=== PATIENT | male | born 1970 | race Caucasian/White ===

== ENCOUNTER → 2020-11-06 10:15 | Outpatient (BNVA) | payer OTHER, SELFPAY | PROVIDERS: PCP Internal Medicine; Visit Provider Internal Medicine Cardiovascular Disease | DX: I49.8 Other specified cardiac arrhythmias (principal) | CPT/HCPCS: 93005; 99212 ==

== ENCOUNTER 2020-11-26 10:09 | Outpatient (REF) | payer OTHER, SELFPAY ==
[2020-11-26 10:52] LABS: Basophils Percent Auto 0.7 % (0-2); Eosinophils Absolute Auto 0.1 X10*3/uL (0.0-0.4); Eosinophils Percent Auto 1.9 % (0-4); Hematocrit 43.4 % (42-52); Hemoglobin 14.7 g/dl (14.0-18.0); Imm Gran Abs Auto 0.04 X10*3/uL (0.00-0.03); Imm Gran Pct Auto 0.7 % (0.0-0.4); Lymphocytes Absolute Auto 1.8 X10*3/uL (1.2-4.9); MANUAL DIFF FLAG NO; Mean Corpuscular HGB Conc 33.9 g/dl (31.0-36.0); Mean Corpuscular Hemoglobin 30.8 pg (27.0-33.0); Mean Corpuscular Volume 90.8 fL (80-98); Mean Platelet Volume 10.4 fL (9.4-12.4); Monocytes Absolute Auto 0.5 X10*3/uL (0.1-1.2); Monocytes Percent Auto 8.8 % (2-11); Neutrophils Absolute Auto 3.3 X10*3/uL (2.0-8.3); Neutrophils Percent Auto 56.9 % (45-73); Platelet Count 204 X10*3/uL (160-400); Red Blood Count 4.78 X10*6/uL (4.60-5.80); Red Cell Distribution Width 12.6 % (11.0-16.0); White Blood Count 5.8 X10*3/uL (4.8-10.8)
[2020-11-26 11:15] LABS: Alanine Aminotransferase 28 U/L (0-40); Albumin Level 4.4 g/dL (3.5-5.0); Alkaline Phosphatase 50 U/L (39-117); Anion Gap 11 (12-20); Aspartate Amino Transferase 22 U/L (5-37); Bilirubin Total 0.9 mg/dL (0.0-1.0); Blood Urea Nitrogen 12 mg/dL (9-16); Calcium 9.4 mg/dL (8.4-10.2); Carbon Dioxide 31 mmol/L (22-29); Chloride 102 mmol/L (96-108); Cholesterol 154 mg/dL; Estimated Glomerular Filt Rate > 60; Glucose Random 99 mg/dL (60-115); HDL Cholesterol 42 mg/dL; LDL Cholesterol Calculated 89 mg/dl; Potassium 4.1 mmol/l (3.3-5.1); Sodium 140 mmol/L (135-145); Triglycerides 119 mg/dL
== END 2020-11-26 10:10 | disposition home or self-care (01) ==
LOC: HO.LAB 10:09
PROVIDERS: PCP Internal Medicine; Visit Provider Internal Medicine
DX: I10 Essential (primary) hypertension (principal); G80.9 Cerebral palsy, unspecified; G81.11 Spastic hemiplegia affecting right dominant side; F70 Mild intellectual disabilities; E66.9 Obesity, unspecified
CPT/HCPCS: 36415; 80053; 80061; 85025

== ENCOUNTER 2021-12-10 09:08 | Outpatient (REF) | payer OTHER, SELFPAY ==
[2021-12-10 09:22] LABS: MANUAL DIFF FLAG NO
[2021-12-10 09:43] LABS: Basophils Percent Auto 0.7 % (0-2); Eosinophils Absolute Auto 0.1 X10*3/uL (0.0-0.4); Eosinophils Percent Auto 2.4 % (0-4); Hemoglobin 14.6 g/dl (14.0-18.0); Imm Gran Abs Auto 0.02 X10*3/uL (0.00-0.03); Imm Gran Pct Auto 0.4 % (0.0-0.4); Lymphocytes Absolute Auto 1.6 X10*3/uL (1.2-4.9); Lymphocytes Percent Auto 28.8 % (20-40); Mean Corpuscular Hemoglobin 30.4 pg (27.0-33.0); Mean Corpuscular Volume 89.6 fL (80.0-98.0); Mean Platelet Volume 10.4 fL (9.4-12.4); Monocytes Absolute Auto 0.4 X10*3/uL (0.1-1.2); Monocytes Percent Auto 7.7 % (2-11); Neutrophils Absolute Auto 3.3 x10*3/uL (2.0-8.3); Platelet Count 216 X10*3/uL (160-400); Red Cell Distribution Width 12.8 % (11.0-16.0); White Blood Count 5.5 X10*3/uL (4.8-10.8)
[2021-12-10 10:09] LABS: Alanine Aminotransferase 27 U/L (0-40); Albumin Level 4.4 g/dL (3.5-5.0); Alkaline Phosphatase 53 U/L (39-117); Anion Gap 15 (12-20); Aspartate Amino Transferase 24 U/L (5-37); Bilirubin Total 0.8 mg/dL (0.0-1.0); Blood Urea Nitrogen 8 mg/dL (9-16); Calcium 9.7 mg/dL (8.4-10.2); Carbon Dioxide 26 mmol/L (22-29); Chloride 107 mmol/L (96-108); Estimated Glomerular Filt Rate > 60; Glucose Random 104 mg/dL (60-115); Potassium 4.1 mmol/L (3.3-5.1); Sodium 144 mmol/L (135-145); Total Protein 7.1 g/dL (6.5-8.0)
[2021-12-10 10:31] LABS: Thyroid Stimulating Hormone 1.94 uIU/mL (0.32-4.0)
== END 2021-12-10 09:09 | disposition home or self-care (01) ==
LOC: HO.LAB 09:08
PROVIDERS: PCP Internal Medicine; Visit Provider Internal Medicine
DX: Z00.01 Encounter for general adult medical examination with abnormal findings (principal); G81.11 Spastic hemiplegia affecting right dominant side; I49.8 Other specified cardiac arrhythmias
CPT/HCPCS: 36415; 80053; 84443; 85025

== ENCOUNTER → 2022-04-05 10:38 | Outpatient (BNVA) | payer OTHER, SELFPAY | PROVIDERS: PCP Internal Medicine; Visit Provider Surgery Vascular Surgery | DX: I83.11 Varicose veins of right lower extremity with inflammation (principal); I89.0 Lymphedema, not elsewhere classified | CPT/HCPCS: 99212 ==

== ENCOUNTER 2022-06-01 10:25 | Outpatient (REF) | payer OTHER, SELFPAY ==
--- NOTE | ~2022-06-01 | US_ITS ---
EXAMINATION: US LOWER EXTREMITY VENOUS (REFLUX EXAM), BILATERAL CLINICAL INDICATION: Chronic venous insufficiency COMPARISON: Ultrasound from 12/10/2014 TECHNIQUE: Color flow triplex imaging and compression Doppler was performed to evaluate both the deep and the superficial systems bilaterally. To evaluate the superficial system, the examination was performed in the upright position. Color-flow Doppler ultrasound and compression ultrasound were utilized. In addition, maneuvers were utilized to demonstrate reflux. FINDINGS: 1. DEEP VENOUS ULTRASOUND OF THE RIGHT LOWER EXTREMITY: Common Femoral Vein: Compressible, normal respiratory variation and augmented flow. Femoral Vein: Compressible, normal color flow and augmentation. Popliteal Vein: Compressible, normal augmentation. Deep Reflux: There is no evidence of reflux in the deep system in either the common femoral vein or the popliteal vein. There is no evidence of a Beltran's cyst. 2. SUPERFICIAL ULTRASOUND WITH DOPPLER OF RIGHT LOWER EXTREMITY: GREAT SAPHENOUS VEIN: Saphenofemoral Junction: 8 mm; Reflux: 0 ms Proximal Thigh: 7 mm; Reflux: 0 ms Mid Thigh: 4 mm; Reflux: 0 ms Above Knee: 5 mm; Reflux: 0 ms At Knee: 4 mm; Reflux: 0 ms Below Knee: 4 mm; Reflux: 0 ms Mid Calf: 4 mm; Reflux: 0 ms Ankle: 5 mm; Reflux: 0 ms DUPLICATED MEDIAL GREAT SAPHENOUS VEIN: Diameter: None Imaged Reflux: NA DUPLICATED LATERAL GREAT SAPHENOUS VEIN: Diameter: None Imaged Reflux: NA SMALL SAPHENOUS VEIN: Proximal: 2 mm; Reflux: 0 ms Distal: 2 mm; Reflux: 0 ms VEIN OF GIACOMINI: None Imaged. PERFORATORS: Location: None Imaged Size: NA Reflux: NA VARICOSITIES: Location: None Imaged Size: NA Reflux: NA 3. DEEP VENOUS ULTRASOUND OF THE LEFT LOWER EXTREMITY: Common Femoral Vein: Compressible, normal respiratory variation and augmented flow. Femoral Vein: Compressible, normal color flow and augmentation. Popliteal Vein: Compressible, normal augmentation. Deep Reflux: There is no evidence of reflux in the deep system in either the common femoral vein or the popliteal vein. There is no evidence of a Beltran's cyst. 4. SUPERFICIAL ULTRASOUND WITH DOPPLER OF LEFT LOWER EXTREMITY: GREAT SAPHENOUS VEIN: Saphenofemoral Junction: 7 mm; Reflux: 0 ms Proximal Thigh: 5 mm; Reflux: 0 ms Mid Thigh: 3 mm; Reflux: 0 ms Above Knee: 3 mm; Reflux: 0 ms At Knee: 5 mm; Reflux: 0 ms Below Knee: 3 mm; Reflux: 0 ms Mid Calf: 2 mm; Reflux: 0 ms Ankle: 4 mm; Reflux: 0 ms DUPLICATED MEDIAL GREAT SAPHENOUS VEIN: Diameter: None Imaged Reflux: NA DUPLICATED LATERAL GREAT SAPHENOUS VEIN: Diameter: 3 mm Reflux: None SMALL SAPHENOUS VEIN: Proximal: 4 mm; Reflux: 0 ms Distal: 3 mm; Reflux: 0 ms VEIN OF GIACOMINI: None Imaged. PERFORATORS: Location: None Imaged Size: NA Reflux: NA VARICOSITIES: Location: None Imaged Size: NA Reflux: NA US/US venous duplex LE BI IMPRESSION: Right: No evidence of deep venous thrombosis. No significant superficial venous reflux Left: No evidence of deep venous thrombosis. No significant superficial venous reflux
== END 2022-06-01 10:26 | disposition home or self-care (01) ==
LOC: HO.US 10:25
PROVIDERS: Visit Provider Surgery Vascular Surgery
DX: I83.11 Varicose veins of right lower extremity with inflammation (principal)
CPT/HCPCS: 93970

== ENCOUNTER → 2022-06-07 09:54 | Outpatient (BNVA) | payer OTHER, SELFPAY | PROVIDERS: PCP Internal Medicine; Visit Provider Surgery Vascular Surgery | DX: I83.11 Varicose veins of right lower extremity with inflammation (principal); I89.0 Lymphedema, not elsewhere classified | CPT/HCPCS: 99212 ==

== ENCOUNTER 2022-06-30 08:55 | Outpatient (REF) | payer OTHER, SELFPAY ==
[2022-06-30 10:07] LABS: Alanine Aminotransferase 23 U/L (0-40); Albumin Level 4.3 g/dL (3.5-5.0); Alkaline Phosphatase 52 U/L (39-117); Anion Gap 15 (12-20); Aspartate Amino Transferase 23 U/L (5-37); Bilirubin Total 0.6 mg/dL (0.0-1.0); Blood Urea Nitrogen 8 mg/dL (9-16); Calcium 9.1 mg/dL (8.4-10.2); Carbon Dioxide 26 mmol/L (22-29); Chloride 104 mmol/L (96-108); Cholesterol 171 mg/dL; Estimated Glomerular Filt Rate > 60; Glucose Fasting 113 mg/dL (60-99); HDL Cholesterol 43 mg/dL; LDL Cholesterol Calculated 104 mg/dl; Potassium 4.3 mmol/L (3.3-5.1); Sodium 141 mmol/L (135-145); Triglycerides 124 mg/dL
== END 2022-06-30 08:56 | disposition home or self-care (01) ==
LOC: HO.LAB 08:55
PROVIDERS: PCP Internal Medicine; Visit Provider Internal Medicine
DX: I49.8 Other specified cardiac arrhythmias (principal)
CPT/HCPCS: 36415; 80053; 80061

== ENCOUNTER 2023-03-10 09:36 | Outpatient (REF) | payer OTHER, SELFPAY ==
[2023-03-10 11:44] LABS: Alanine Aminotransferase 28 U/L (0-40); Albumin Level 4.5 g/dL (3.5-5.0); Alkaline Phosphatase 53 U/L (39-117); Anion Gap 12 (12-20); Aspartate Amino Transferase 21 U/L (5-37); Blood Urea Nitrogen 9 mg/dL (9-16); Calcium 9.4 mg/dL (8.4-10.2); Carbon Dioxide 31 mmol/L (22-29); Chloride 103 mmol/L (96-108); Cholesterol 172 mg/dL; Estimated Glomerular Filt Rate > 60; Glucose Fasting 98 mg/dL (60-99); HDL Cholesterol 40 mg/dL; LDL Cholesterol Calculated 109 mg/dl; Potassium 4.2 mmol/L (3.3-5.1); Sodium 142 mmol/L (135-145); Total Protein 6.9 g/dL (6.5-8.0); Triglycerides 116 mg/dL
[2023-03-10 12:01] LABS: Vitamin D 25-OH Total 14.1 ng/mL (>30)
== END 2023-03-10 09:37 | disposition home or self-care (01) ==
LOC: HO.LAB 09:36
PROVIDERS: PCP Internal Medicine; Visit Provider Internal Medicine
DX: I73.9 Peripheral vascular disease, unspecified (principal); E55.9 Vitamin D deficiency, unspecified
CPT/HCPCS: 36415; 80053; 80061; 82306

== ENCOUNTER 2023-07-13 08:36 | Outpatient (REF) | payer OTHER, SELFPAY ==
[2023-07-13 10:44] LABS: Alanine Aminotransferase 24 U/L (0-40); Albumin Level 4.2 g/dL (3.5-5.0); Alkaline Phosphatase 49 U/L (39-117); Anion Gap 12 (12-20); Aspartate Amino Transferase 23 U/L (5-37); Bilirubin Total 0.7 mg/dL (0.0-1.0); Blood Urea Nitrogen 8 mg/dL (9-16); Calcium 9.6 mg/dL (8.4-10.2); Carbon Dioxide 29 mmol/L (22-29); Chloride 105 mmol/L (96-108); Cholesterol 164 mg/dL (<200); Estimated Glomerular Filt Rate > 60; Glucose Fasting 97 mg/dL (60-99); HDL Cholesterol 42 mg/dL (>40); LDL Cholesterol Calculated 98 mg/dL (<100); Potassium 3.8 mmol/L (3.3-5.1); Sodium 142 mmol/L (135-145); Total Protein 7.1 g/dL (6.5-8.0); Triglycerides 120 mg/dL (<150)
[2023-07-13 11:04] LABS: Vitamin D 25-OH Total 18.6 ng/mL (>30)
== END 2023-07-13 08:37 | disposition home or self-care (01) ==
LOC: HO.LAB 08:36
PROVIDERS: PCP Internal Medicine; Visit Provider Internal Medicine
DX: I49.8 Other specified cardiac arrhythmias (principal); E78.5 Hyperlipidemia, unspecified; E55.9 Vitamin D deficiency, unspecified
CPT/HCPCS: 36415; 80053; 80061; 82306

== ENCOUNTER 2023-07-18 08:46 | Outpatient (AMB) | payer OTHER, SELFPAY ==
[2023-07-18 09:21] VITALS: BP 136/80
--- NOTE | 2023-07-18 09:21 | A.OFFPC_ITS ---
Vital Signs 07/18/23 09:21 BMI Reason not done Patient refused/unable BP 136/80 Blood Pressure Location Lt brachial Position Sitting Intake Visit Reasons: daytime somnolence Intake Note: Patient here for a daytime somnolence Insole Tape Stitcher [employer] Required: No Accompanied by: Niece Allergies No Known Allergies [No Known Allergies*] Allergy (Verified 07/18/23 09:35) Medication List - Last Reconciled 07/18/23 by Betzy Matthews MD cholecalciferol (vitamin D3) 25 mcg PO DAILY 90 days [compression stockings As directed] metoprolol tartrate 50 mg PO BID 90 days underpads (Certainty Underpads) As directed [wheelchair heavy duty with leg rest As directed] Tobacco use date assessed: 03/16/23 Dental Screening Dental Screen Date: 07/18/23 Did you have a dental visit in the last 12 months?: No Did you have a dental problem in the last 6 months where you did not have access to dental care?: No Was dental information given to patient?: Patient has dentist HPI HPI Comments History of Present Illness Details This is a 52-year-old male with Brugada syndrome, wheelchair-bound, urinary incontinence and low vitamin-D that comes today accompanied by REPLANTING MACHINE OPERATOR which is his niece for follow-up on recent labs. Labs were within normal limits. Vitamin-D normal on supplements. He is wheelchair bound and has right hemiplegia with minimal range of motion in both upper and lower limbs. Needs assistance in basic activities of daily such as bathing, toileting, transfer fr om bed to wheelchair since . Urinary incontinence has been present since and use diapers. Brugada syndrome is follow by cardiology and has been well control. No chest pain or shortness of breath. [facility] Medical History (Updated 07/18/23 @ 09:42 by Betzy Matthews MD) Arterial insufficiency of lower extremity Brugada syndrome History of bacterial meningitis in childhood Leg edema Wheelchair bound Surgical History History of hip surgery Family History Father HTN (hypertension) Diabetes Hyperlipidemia Mother HTN (hypertension) Hyperlipidemia Diabetes Social History Housing: House Alcohol intake: never Patient Tobacco Use Status: Never used Tobacco e-Cigarette/Vaping Use: Never Used Second Hand Smoke Exposure: No service: No Current occupational status: disabled Cognitive needs: Yes Hearing needs: No Vision needs: No Questionnaire Thrive Questionnaire Date Thrive assessed: 03/16/23 RODNEY-7 AMB Questionnaire RODNEY-7 Date RODNEY - 7 assessed: 03/16/23 Source: Developed by Drs. Jonh López, Kiley Srinivasan, Zoltan Sepulveda and colleagues, with an educational cam from [employer]. Review of Systems Const All systems reviewed & are unremarkable except as noted in HPI and below Eyes Reports no additional complaints, Denies change in vision and Denies other visual disturbances Card Denies chest pain at rest, Denies chest pain with activity, Denies edema, Denies irregular heart rhythm, Denies claudication, Denies dyspnea, Denies dyspnea on exertion, Denies orthopnea, Denies paroxysmal nocturnal dyspnea and Denies slow heart rate Resp Denies cough, Denies dyspnea and Denies dyspnea on exertion GI Denies abdominal pain, Denies change in bowel habits, Denies excessive flatus, Denies nausea and Denies vomiting Denies urinary hesitancy, Denies urinary incontinence and Denies urinary urgency Musc Denies abnormal gait, Denies atrophy, Denies deformity and Denies limited range of motion Skin/Breast Denies bleeding lesions, Denies changing lesions and Denies rash Neuro Denies abnormal gait and Denies lack of coordination Physical exam (Primary Care) Vital Signs: Last Vital Signs BP 136/80 07/18/23 09:21 Tobacco/Smoking Status: Tobacco use Status Tobacco use date assessed 03/16/23 07/18/23 09:24 Patient Tobacco Use Status Never used Tobacco 07/18/23 09:24 e-Cigarette/Vaping Use Never Used 07/18/23 09:24 Thrive Assessment: Date of Thrive Assessment Date Thrive assessed 03/16/23 07/18/23 09:24 Const Limitations: wheelchair Eyes General: appearance normal, both eyes and all related structures Eyelids: Yes eyelids normal Conjunctivae: conjunctivae normal Neck Neck: Yes normal visual inspection and Yes supple Resp Effort & Inspection: normal respiratory effort Auscultation: clear to auscultation bilaterally Cardio Jugular venous distension: no JVD Rate: regular rate Rhythm: regular rhythm Heart sounds: S1 normal heart sound present and S2 normal heart sound present Neuro Motor exam (neuro): Abnormal motor strength present (1/5 in right upper and lower limbs, 5/5/ left upper and lower limbs) Extrem General: Yes full ROM Assessment and Plan Assessment & Plan (1) Hypovitaminosis D: Code(s): E55.9 - Vitamin D deficiency, unspecified Plan: Continue vitamin-D supplements. (2) Urinary incontinence: Code(s): R32 - Unspecified urinary incontinence Plan: Continue the use of diapers (3) Brugada syndrome: Code(s): I49.8 - Other specified cardiac arrhythmias Plan: Continue metoprolol. (4) Wheelchair bound: Code(s): Z99.3 - Dependence on wheelchair Plan: Continue the use of wheelchair Orders: Referrals Gastroenterology Referral Z12.11 - Encounter for screening for malignant neoplasm of colon Medications: Refilled [wheelchair heavy duty with leg rest] As directed 1 ea 0RF I73.9 - Peripheral vascular disease, unspecified, I89.0 - Lymphedema, not elsewhere classified, Z99.3 - Dependence on wheelchair Coding Level of Care Code Est Pt Level 4 (40673) Diagnoses Hypovitaminosis D E55.9 Urinary incontinence R32 Brugada syndrome I49.8 Wheelchair bound Z99.3 Time Spent (min) 22
== END 2023-07-18 09:50 | disposition home or self-care (01) ==
PROVIDERS: Visit Provider Internal Medicine
DX: E55.9 Vitamin D deficiency, unspecified (principal); R32 Unspecified urinary incontinence; I49.8 Other specified cardiac arrhythmias; Z99.3 Dependence on wheelchair
CPT/HCPCS: 99214

== ENCOUNTER 2024-05-22 08:27 | Outpatient (AMB) | payer OTHER, SELFPAY ==
--- NOTE | 2024-05-22 08:58 | AM.OFFVISNUR ---
Intake Visit Reasons: TB vaccine Allergies No Known Allergies [No Known Allergies*] Allergy (Verified 07/18/23 09:35) Assessment & Plan Assessment & Plan Orders: Orders Td State Immunization Today Z23 - Encounter for immunization Medications: New tetanus-diphtheria toxoids-Td 0.5 mL IM ONCE 0.5 mL 0RF Z23 - Encounter for immunization
== END 2024-05-22 09:02 | disposition home or self-care (01) ==
PROVIDERS: PCP Internal Medicine; Visit Provider Internal Medicine
DX: Z23 Encounter for immunization (principal)
CPT/HCPCS: 90471; 90714

== ENCOUNTER 2024-06-13 12:54 | Outpatient (AMB) | payer OTHER, SELFPAY ==
--- NOTE | 2024-06-13 13:00 | A.OFFPC_ITS ---
Vital Signs 06/13/24 13:06 BMI Reason not done Patient refused/unable BP 112/80 Blood Pressure Location Lt brachial Position Sitting Pulse 59 Pulse Source Pulse Oximeter Pulse Oximetry (%) 95 Oxygen Delivery Method Room Air Comment Patient on wheelchair Intake Visit Reasons: ANNUAL Intake Note: Patient here for an annual physical exam Group Contract Analyst Required: No Accompanied by: niece Allergies No Known Allergies [No Known Allergies*] Allergy (Verified 06/13/24 13:10) Medication List - Last Reconciled 06/13/24 by Betzy Matthews MD cholecalciferol (vitamin D3) 25 mcg PO DAILY 90 days [compression stockings As directed] metoprolol tartrate 50 mg PO BID 90 days underpads (Certainty Underpads) As directed [wheelchair heavy duty with leg rest LIFETIME USE] Tobacco use date assessed: 06/13/24 Dental Screening Dental Screen Date: 06/13/24 Did you have a dental visit in the last 12 months?: No Did you have a dental problem in the last 6 months where you did not have access to dental care?: No Was dental information given to patient?: Patient has dentist HPI HPI Comments History of Present Illness Details This is a 53-year-old male with right hemiplegia that comes today accompanied by drawstring knotter which is his niece for physical exam. He was born this way wheelchair-bound. Has not had a colonoscopy. Cologuard was too difficult to be done. No chest pain or shortness on breath. Will benefit from physical therapy due to hemiplegia. [facility] Medical History (Updated 06/13/24 @ 13:23 by Betzy Matthews MD) Arterial insufficiency of lower extremity Leg edema History of bacterial meningitis in childhood Wheelchair bound Brugada syndrome Surgical History History of hip surgery Family History Father HTN (hypertension) Diabetes Hyperlipidemia Mother HTN (hypertension) Hyperlipidemia Diabetes Social History Housing: House Alcohol intake: never Patient Tobacco Use Status: Never used Tobacco e-Cigarette/Vaping Use: Never Used Second Hand Smoke Exposure: No service: No Current occupational status: disabled Cognitive needs: Yes Hearing needs: No Vision needs: No Questionnaire PHQ-9 Over the last 2 weeks, how often have you been bothered by any of the following problems? 1. Little interest or pleasure in doing things: not at all 2. Feeling down, depressed, or hopeless: not at all 3. Trouble falling or staying asleep, or sleeping too much: not at all 4. Feeling tired or having little energy: not at all 5. Poor appetite or overeating: not at all 6. Feeling bad about yourself - or that you are a failure or have let yourself or your family down: not at all 7. Trouble concentrating on things, such as reading the newspaper or watching television: not at all 8. Moving or speaking so slowly that other people could have noticed. Or the opposite - being so fidgety or restless that you have been moving around a lot more than usual: not at all 9. Thoughts that you would be better off or of hurting yourself in some way: not at all Total score: 0 Depression Screening Interpretation: Negative Depression Screening Done: Yes 60569 - PHQ-9 Billing: Yes Source: Developed by Drs. Jonh López, Kiley Srinivasan, Zoltan Sepulveda and colleagues, with an educational cam from [employer]. Thrive Questionnaire Date Thrive assessed: 06/13/24 I am a: Patient What is your living situation today?: I have a steady place to live Within the past 12 months, did the food you bought not last and you didn't have the money to get more?: Never true Within the past 12 months, did you worry whether your food would run out before you got money to buy more?: Never true Do you have trouble paying for medicines?: No Do you have trouble getting transportation to medical appointments?: No Do you have trouble paying your heating and electricity bill?: No Do you have trouble taking care of your child, family member or friend?: No Do you have trouble with day-to-day activities such as bathing, preparing meals, shopping, managing finances, etc.?: No Are you currently unemployed and looking for a job?: No Are you interested in more education?: No Please select the resources that you would like help with: None Currently or been in a relationship where the following occur: No concerns reported THRIVE Score: 0 AUDIT C Alcohol Use Questionnaire (AUDIT-C) 1. How often do you have a drink containing alcohol?: Never Total Score: 0 RODNEY-7 AMB Questionnaire RODNEY-7 Date RODNEY - 7 assessed: 06/13/24 Feeling nervous, anxious, or on edge: 0 = Not at all Not being able to stop or control worryin = Not at all Worrying too much about different things: 0 = Not at all Trouble relaxin = Not at all Being so restless that it is hard to sit still: 0 = Not at all Becoming easily annoyed or irritable: 0 = Not at all Feeling afraid as if something awful might happen: 0 = Not at all Total RODNEY-7 score (0-4 normal; 5-9 mild; 10-14 moderate; 15-21 severe): 0 Source: Developed by Drs. Jonh López, Kiley Srinivasan, Zoltan Sepulveda and colleagues, with an educational cam from [employer]. Review of Systems Const All systems reviewed & are unremarkable except as noted in HPI and below Card Denies chest pain at rest, Denies chest pain with activity, Denies edema, Denies irregular heart rhythm, Denies claudication, Denies dyspnea, Denies dyspnea on exertion, Denies orthopnea, Denies paroxysmal nocturnal dyspnea and Denies slow heart rate Resp Denies cough, Denies dyspnea and Denies dyspnea on exertion Neuro Reports focal weakness Physical exam (Primary Care) Vital Signs: Last Vital Signs Pulse 59 06/13/24 13:06 BP 112/80 06/13/24 13:06 Pulse Ox 95 06/13/24 13:06 Oxygen Delivery Method Room Air 06/13/24 13:06 Tobacco/Smoking Status: Tobacco use Status Tobacco use date assessed 03/16/23 06/13/24 13:02 Patient Tobacco Use Status Never used Tobacco 06/13/24 13:02 e-Cigarette/Vaping Use Never Used 06/13/24 13:02 Depression Screening Interpretation: Negative Thrive Assessment: Date of Thrive Assessment Date Thrive assessed 03/16/23 06/13/24 13:02 Currently or been in a relationship where the following occur: No concerns reported Const Limitations: wheelchair HENMT Head: Yes normal to inspection, Yes normocephalic and Yes atraumatic Ears: external ears normal Eyes General: appearance normal, both eyes and all related structures Eyelids: Yes eyelids normal Conjunctivae: conjunctivae normal Neck Neck: Yes normal visual inspection and Yes supple Resp Effort & Inspection: normal respiratory effort Auscultation: clear to auscultation bilaterally Cardio Jugular venous distension: no JVD Rate: regular rate Rhythm: regular rhythm Heart sounds: S1 normal heart sound present and S2 normal heart sound present GI Inspection: Yes normal to inspection Palpation (GI): Soft to palpation and nontender Auscultation: normal bowel sounds Skin General skin exam: no rashes or lesions noted Neuro Motor exam (neuro): Abnormal motor strength present (5/5 left, 1/5 right) Extrem General: Yes full ROM Right upper extremity: Extremity exam: right hand Details: abnormal to inspection Details: a deformity (hand deviated outwards) Right lower extremity: foot Details: abnormal to inspection (deviated inwards) Psych Appearance: grossly normal Assessment and Plan Assessment & Plan (1) Physical exam: Code(s): Z00.00 - Encounter for general adult medical examination without abnormal findings Plan: Repeat in a year. (2) Right hemiplegia: Code(s): G81.91 - Hemiplegia, unspecified affecting right dominant side Plan: Referred to [facility] for in-house physical therapy. Orders: Orders T Spot TB Today Z11.1 - Encounter for screening for respiratory tuberculosis Lipid Panel Today Z00.00 - Encounter for general adult medical examination without abnormal findings Vitamin D 25-OH Total Today E55.9 - Vitamin D deficiency, unspecified Comprehensive [place]. Panel Fast Today Z00.00 - Encounter for general adult m edical examination without abnormal findings [facility]errals [facility] Referral G81.91 - Hemiplegia, unspecified affecting right dominant side Medications: Refilled [compression stockings] As directed 1 ea 3RF bilateral R60.0 - Localized edema Coding Level of Care Code Est Pt Level 3 (08378) Est Pt Prev Care 40-64y(82042) Diagnoses Physical exam Z00.00 Right hemiplegia G81.91 Time Spent (min) 31
[2024-06-13 13:06] VITALS: BP 112/80; PULSE 59; O2SAT 95
== END 2024-06-13 13:26 | disposition home or self-care (01) ==
LOC: HO.HMGH 12:55
PROVIDERS: PCP Internal Medicine; Visit Provider Internal Medicine
DX: Z00.00 Encounter for general adult medical examination without abnormal findings (principal); G81.91 Hemiplegia, unspecified affecting right dominant side
CPT/HCPCS: 99213; 99396

== ENCOUNTER 2024-07-02 08:08 | Outpatient (REF) | payer OTHER, SELFPAY ==
[2024-07-02 10:20] LABS: Alanine Aminotransferase 29 U/L (0-40); Albumin Level 4.4 g/dL (3.5-5.0); Alkaline Phosphatase 51 U/L (39-117); Anion Gap 11 (12-20); Aspartate Amino Transferase 23 U/L (5-37); Bilirubin Total 0.7 mg/dL (0.0-1.0); Blood Urea Nitrogen 9 mg/dL (9-16); Calcium 9.2 mg/dL (8.4-10.2); Carbon Dioxide 31 mmol/L (22-29); Chloride 103 mmol/L (96-108); Cholesterol 172 mg/dL (<200); Estimated Glomerular Filt Rate > 60; Glucose Fasting 106 mg/dL (60-99); HDL Cholesterol 47 mg/dL (>40); LDL Cholesterol Calculated 107 mg/dL (<100); Potassium 4.1 mmol/L (3.3-5.1); Sodium 141 mmol/L (135-145); Total Protein 7.3 g/dL (6.5-8.0); Triglycerides 94 mg/dL (<150); Vitamin D 25-OH Total 21.2 ng/mL (>30)
[2024-07-05 02:13] LABS: TS Negative Control Passed; TS Panel A 1; TS Panel B 2; TS Positive Control Passed; TSpotTB Negative (Negative)
== END 2024-07-02 08:09 | disposition home or self-care (01) ==
LOC: HO.LAB 08:08
PROVIDERS: PCP Internal Medicine; Visit Provider Internal Medicine
DX: Z00.00 Encounter for general adult medical examination without abnormal findings (principal); Z11.1 Encounter for screening for respiratory tuberculosis; E55.9 Vitamin D deficiency, unspecified
CPT/HCPCS: 36415; 80053; 80061; 82306; 86481

== ENCOUNTER 2025-06-13 09:02 | Outpatient (REF) | payer OTHER, SELFPAY ==
--- OUTSIDE RECORDS SUMMARY | 2025-06-13 09:20 | XMS_ITS | Encounter Summary ---
Author Organization [employer] Address [address] [place] [address] Care Team Providers Care Grain I Farmworker Name Role Phone Unavailable Primary Care Provider Unavailabl e Encounter Details Date Type Department Care Team (Latest Contact Info) Description 12/18/2019 Abstract C CONVERSIONS Dental, Provider, DDS Social History Tobacco Use Types Packs/Day Years Used Date Smoking Tobacco: Never Assessed Sex and Gender Information Value Date Recorded Sex Assigned at Male 09/19/2022 10:18 AM EDT Legal Sex Male 10:18 AM EDT Gender Identity Choose not to disclose 10:18 AM EDT Sexual Orientation Choose not to disclose 2021 10:18 AM EDT documented as of this encounter Plan of Treatment Not on file documented as of this encounter Visit Diagnoses Not on filedocumented in this encounter
[2025-06-13 10:17] LABS: Alanine Aminotransferase 29 U/L (0-40); Albumin Level 4.7 g/dL (3.5-5.0); Alkaline Phosphatase 54 U/L (39-117); Anion Gap 12 (12-20); Aspartate Amino Transferase 28 U/L (5-37); Blood Urea Nitrogen 10 mg/dL (9-16); Calcium 9.4 mg/dL (8.4-10.2); Carbon Dioxide 28 mmol/L (22-29); Chloride 106 mmol/L (96-108); Cholesterol 163 mg/dL (<200); Estimated Glomerular Filt Rate > 60; HDL Cholesterol 39 mg/dL (>40); Potassium 3.9 mmol/L (3.3-5.1); Sodium 142 mmol/L (135-145); Total Protein 7.2 g/dL (6.5-8.0); Triglycerides 103 mg/dL (<150)
== END 2025-06-13 09:03 | disposition home or self-care (01) ==
LOC: HO.LAB 09:02
PROVIDERS: PCP Internal Medicine; Visit Provider Internal Medicine
DX: Z00.00 Encounter for general adult medical examination without abnormal findings (principal)
CPT/HCPCS: 36415; 80053; 80061; 82306

== ENCOUNTER 2025-06-16 09:02 | Outpatient (AMB) | payer OTHER, SELFPAY ==
--- NOTE | 2025-06-16 09:12 | MHC.PC.OV ---
Vital Signs 06/16/25 09:14 Height 5 ft 4 in Weight 199 lb 11.821 oz BMI 34.3 BP 124/82 Blood Pressure Location Lt brachial Position Sitting Intake Visit Reasons: PE Intake Note: Patient here for a physical exam Objects Conservator Required: No Accompanied by: mother, niece Allergies No Known Allergies (No Known Allergies*) Allergy (Verified 06/16/25 09:21) Medication List - Last Reconciled 06/16/25 by Betzy Matthews MD cholecalciferol (vitamin D3) 25 mcg PO DAILY 90 days [compression stockings As directed] incontinence pad, liner, disp (Total Care Underpads) As directed- extra large metoprolol tartrate 50 mg PO BID 90 days nystatin 1 appl topical BID 2 weeks [wheelchair heavy duty with leg rest LIFETIME USE] [Wide shower chair As directed] Tobacco use date assessed: 06/16/25 Dental Screening Dental Screen Date: 06/16/25 Did you have a dental visit in the last 12 months?: No Did you have a dental problem in the last 6 months where you did not have access to dental care?: No Was dental information given to patient?: Patient has dentist HPI HPI Comments History of Present Illness Details The patient is a 54-year-old male presenting for an annual physical examination and preventative care. He has a history of Brugada syndrome, which is managed with metoprolol, and is followed by cardiology annually. 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 He experiences limited mobility in his extremities, with noted difficulty in transferring and ambulating. His laboratory results indicate vitamin D insufficiency with a level of 27.2 ng/mL, slightly below the normal range of 30 ng/mL. Preventative care measures include the need for a pneumonia vaccination and a colonoscopy for colon cancer screening. ON LICENSE OF [facility] Medical History Arterial insufficiency of lower extremity Leg edema History of bacterial meningitis in childhood Wheelchair bound Brugada syndrome Surgical History History of hip surgery Family History (Updated 06/16/25 @ 09:29 by Betzy Matthews MD) Father HTN (hypertension) Diabetes Hyperlipidemia Mother HTN (hypertension) Hyperlipidemia Diabetes Social History Housing: House Alcohol intake: never Patient Tobacco Use Status: Never used Tobacco e-Cigarette/Vaping Use: Never Used Second Hand Smoke Exposure: No service: No Current occupational status: disabled Cognitive needs: Yes Hearing needs: No Vision needs: No Questionnaire PHQ-9 Over the last 2 weeks, how often have you been bothered by any of the following problems? 1. Little interest or pleasure in doing things: not at all 2. Feeling down, depressed, or hopeless: not at all 3. Trouble falling or staying asleep, or sleeping too much: not at all 4. Feeling tired or having little energy: not at all 5. Poor appetite or overeating: not at all 6. Feeling bad about yourself - or that you are a failure or have let yourself or your family down: not at all 7. Trouble concentrating on things, such as reading the newspaper or watching television: not at all 8. Moving or speaking so slowly that other people could have noticed. Or the opposite - being so fidgety or restless that you have been moving around a lot more than usual: not at all 9. Thoughts that you would be better off or of hurting yourself in some way: not at all Total score: 0 Depression Screening Interpretation: Negative Depression Screening Done: Yes 87371 - PHQ-9 Billing: Yes Source: Developed by Drs. Jonh óLpez, Kiley Srinivasan, Zoltan Sepulveda and colleagues, with an educational cam from [employer]. Thrive Questionnaire Date Thrive assessed: 06/16/25 I am a: Patient What is your living situation today?: I have a steady place to live Within the past 12 months, did the food you bought not last and you didn't have the money to get more?: Never true Within the past 12 months, did you worry whether your food would run out before you got money to buy more?: I choose not to answer this question Do you have trouble paying for medicines?: I choose not to answer this question Do you have trouble getting transportation to medical appointments?: I choose not to answer this question Do you have trouble paying your heating and electricity bill?: I choose not to answer this question Do you have trouble taking care of your child, family member or friend?: I choose not to answer this question Do you have trouble with day-to-day activities such as bathing, preparing meals, shopping, managing finances, etc.?: I choose not to answer this question Are you currently unemployed and looking for a job?: I choose not to answer this question Are you interested in more education?: I choose not to answer this question Please select the resources that you would like help with: Housing/Penitentiary Currently or been in a relationship where the following occur: I choose not to answer THRIVE Score: 0 AUDIT C Alcohol Use Questionnaire (AUDIT-C) 1. How often do you have a drink containing alcohol?: Never Total Score: 0 Score Reviewed/Action Taken: No RODNEY-7 AMB Questionnaire RODNEY-7 Date RODNEY - 7 assessed: 06/16/25 Feeling nervous, anxious, or on edge: 0 = Not at all Not being able to stop or control worryin = Not at all Worrying too much about different things: 0 = Not at all Trouble relaxin = Not at all Being so restless that it is hard to sit still: 0 = Not at all Becoming easily annoyed or irritable: 0 = Not at all Feeling afraid as if something awful might happen: 0 = Not at all Total RODNEY-7 score (0-4 normal; 5-9 mild; 10-14 moderate; 15-21 severe): 0 Source: Developed by Drs. Jonh López, Kiley Srinivasan, Zoltan Sepulveda and colleagues, with an educational cam from [employer]. RODNEY-7 Assessment Billing RODNEY-7 Assessment Tool: RODNEY-7 Assessment 46850 Review of Systems Const All systems reviewed & are unremarkable except as noted in HPI and below Card Denies chest pain at rest, Denies chest pain with activity, Denies edema, Denies irregular heart rhythm, Denies claudication, Denies dyspnea, Denies dyspnea on exertion, Denies orthopnea, Denies paroxysmal nocturnal dyspnea and Denies slow heart rate Resp Denies cough, Denies dyspnea and Denies dyspnea on exertion GI Denies abdominal pain, Denies change in bowel habits, Denies excessive flatus, Denies nausea and Denies vomiting Denies urinary hesitancy, Denies urinary incontinence and Denies urinary urgency Musc Denies abnormal gait, Denies atrophy, Denies deformity and Denies limited range of motion Skin/Breast Denies bleeding lesions, Denies changing lesions and Denies rash Neuro Denies abnormal gait, Denies behavioral changes and Denies lack of coordination Psych Denies behavioral changes Physical exam (Primary Care) Vital Signs: Last Vital Signs BP 124/82 06/16/25 09:14 BMI result Body Mass Index 34.3 BMI Assessment/Plan discussion: High BMI High, discussed plan: lifestyle, weight reduction, dietary and physical activity Tobacco/Smoking Status: Tobacco use Status Tobacco use date assessed 06/16/25 06/16/25 09:23 Patient Tobacco Use Status Never used Tobacco 06/16/25 09:15 e-Cigarette/Vaping Use Never Used 06/16/25 09:15 PHQ-9: PHQ-9 Score PHQ-9: Total score 0 06/16/25 09:36 Depression Screening Interpretation: Negative Thrive Assessment: Date of Thrive Assessment Date Thrive assessed 06/16/25 06/16/25 09:15 Currently or been in a relationship where the following occur: I choose not to answer Const Nutritional Appearance: obese Limitations: wheelchair HENMT Head: Yes normal to inspection, Yes normocephalic and Yes atraumatic Ears: external ears normal Eyes General: appearance normal, both eyes and all related structures Eyelids: Yes eyelids normal Conjunctivae: conjunctivae normal Neck Neck: Yes normal visual inspection and Yes supple Resp Effort & Inspection: normal respiratory effort Auscultation: clear to auscultation bilaterally Cardio Jugular venous distension: no JVD Rate: regular rate Rhythm: regular rhythm Heart sounds: S1 normal heart sound present and S2 normal heart sound present GI Inspection: Yes normal to inspection Palpation (GI): Soft to palpation and nontender Auscultation: normal bowel sounds Skin General skin exam: no rashes or lesions noted Neuro Other: right foot deviated inwards Motor exam (neuro): Abnormal motor strength present (right hemiplegia) Psych Appearance: grossly normal Immunizations pneumoc 20-rashid conj-dip cr(PF) 0.5 mL IM syringe Performing Provider: Betzy Matthews MD [facility] Administered by: MICHAEL Hansen on 06/16/25 09:41 Dose Route Admin Location Dispensed Lot Number Expiration Date [facility] Computational [employer]ologist 0.5 mL IM Left Deltoid 0.5 mL [id number] 05/20/26 2979-1028-14 [employer] Total Dispensed Waste 0.5 mL 0 % VIS Given Date VIS Provided VIS Publication Date 06/16/25 Single Vaccine 25 Eligibility Eligibility Date Funding Source Not VF Eligible 06/16/25 Private Coding Level of Care Code Est Pt Prev Care 40-64y(82683) Diagnoses Physical exam Z00.00 Right hemiplegia G81.91 Additional Codes RODNEY-7 Assessment Billing - RODNEY-7 Assessment Tool: RODNEY-7 Assessment 60368 ([id number]) PHQ-9 - 45381 - PHQ-9 Billing: Yes ([id number]) Time Spent (min) 30 Assessment & Plan Assessment & Plan (1) Physical exam: Code(s): Z00.00 - Encounter for general adult medical examination without abnormal findings Category: Medical (2) Right hemiplegia: Code(s): G81.91 - Hemiplegia, unspecified affecting right dominant side Category: Medical Plan The plan includes administering a pneumonia vaccination, as the patient received the previous dose at age 49, and a second dose is recommended five years later. A colonoscopy is advised for colon cancer screening due to the challenges faced with stool sample collection for Cologuard testing. The patient's vitamin D insufficiency will be addressed by considering supplementation to achieve levels within the normal range. Continued management of Brugada syndrome with metoprolol is planned, with annual cardiology follow-ups. Patient was informed and verbally consented to the use of an ambient scribe for clinic note documentation during this visit. Orders: Orders Pneumococcal 20 Immunization Today Z23 - Encounter for immunization Referrals Open Access Screening Colonoscopy Referral Z12.12 - Encounter for screening for malignant neoplasm of rectum Medications: New commode As directed 1 ea 0RF G81.91 - Hemiplegia, unspecified affecting right dominant side [cushion for wheelchair] As directed 1 ea 0RF G81.91 - Hemiplegia, unspecified affecting right dominant side [grab bar] As directed 4 ea 0RF G81.91 - Hemiplegia, unspecified affecting right dominant side [tub bench] As directed 1 ea 0RF G81.91 - Hemiplegia, unspecified affecting right dominant side [recliner] As directed 1 ea 0RF G81.91 - Hemiplegia, unspecified affecting right dominant side Refilled [wheelchair heavy duty with leg rest] LIFETIME USE 1 ea 0RF LIFETIME USE I73.9 - Peripheral vascular disease, unspecified, I89.0 - Lymphedema, not elsewhere classified, Z99.3 - Dependence on wheelchair
[2025-06-16 09:14] VITALS: BP 124/82; BMI 34.3
--- OUTSIDE RECORDS SUMMARY | 2025-06-16 09:45 | XMS_ITS | Encounter Summary ---
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
== END 2025-06-16 09:42 | disposition home or self-care (01) ==
LOC: HO.HMCH 09:08
PROVIDERS: PCP Internal Medicine; Visit Provider Internal Medicine
DX: Z00.00 Encounter for general adult medical examination without abnormal findings (principal); G81.91 Hemiplegia, unspecified affecting right dominant side; Z23 Encounter for immunization

== ENCOUNTER → 2025-06-16 09:02 | Outpatient (BNVA) | payer OTHER, SELFPAY | PROVIDERS: PCP Internal Medicine; Visit Provider Internal Medicine | DX: Z00.00 Encounter for general adult medical examination without abnormal findings (principal); G81.91 Hemiplegia, unspecified affecting right dominant side; E55.9 Vitamin D deficiency, unspecified; I73.9 Peripheral vascular disease, unspecified; I89.0 Lymphedema, not elsewhere classified; Z23 Encounter for immunization; Z99.3 Dependence on wheelchair | CPT/HCPCS: 90471; 90677; 96127; 99396 ==